=== PATIENT | female | born 1945 | race Caucasian/White ===

== ENCOUNTER 2021-01-11 09:29 | Day surgery (SDC) | payer MEDICARE, OTHER ==
[~2021-01-11 09:29] MED LIST: Lactated Ringers 1,000 ML IV SCH
[2021-01-11] MEDS ORDERED: Propofol 200 MG/20 ML SDV ONE (10:36)
[2021-01-11] MEDS ORDERED: fentaNYL 100 MCG/2 ML SDV ONE (10:36)
[2021-01-11 11:21] VITALS: BP 122/74; PULSE 82
--- NOTE | 2021-01-12 10:09 | OR ---
PREOPERATIVE DIAGNOSIS: Screening colonoscopy. POSTOPERATIVE DIAGNOSIS: Screening colonoscopy. PROCEDURE PERFORMED: Screening colonoscopy. COMPLICATIONS: None. SPECIMENS: None. ESTIMATED BLOOD LOSS: 5 mL. ANESTHESIA: Sedation. PROCEDURE IN DETAIL: This was done in the procedure room. She was placed in left lateral position. First, a rectal exam was done and was normal. Scope was introduced into the rectum and slowly advanced to the rectum, sigmoid, descending, transverse, and ascending colon until the cecum was reached. Upon reaching the cecum, scope was slowly withdrawn looking at all mucosal surfaces on the way out. No mucosal abnormalities, lesions, or polyps were noted. She did have [id number] sigmoid diverticulosis. FINAL DIAGNOSIS: Sigmoid diverticulosis. BKD: 01/11/2021 11:04:10 MODL: 01/11/2021 18:54:27 /[id number]
== END 2021-01-11 12:00 | disposition home or self-care (01) ==
LOC: VM.SDS 09:29
PROVIDERS: ATTEND Surgery
DX: Z12.11 Encounter for screening for malignant neoplasm of colon (principal); K57.30 Diverticulosis of large intestine without perforation or abscess without bleeding; Z98.890 Other specified postprocedural states; E78.5 Hyperlipidemia, unspecified; Z88.5 Allergy status to narcotic agent; Z88.0 Allergy status to penicillin; Z79.899 Other long term (current) drug therapy
CPT/HCPCS: 00812; J2704; J3010; J7120